=== PATIENT | male | born 1940 | race Caucasian/White ===

== ENCOUNTER → 2018-06-20 | Outpatient (CLI) | payer MEDICARE, OTHER ==
[~2018-06-20] MED LIST: ACET-1600 PO; ASPI-515 PO; ASPI325T17 PO; ATOR40TA PO; B COMPLEX; B COMPLEX SL; CALC625T64 PO; CELE50CA PO; CETI-158 PO; CETI10TA18 PO; CHOL200024 PO; CRAN1CAP8 PO; CYAN250013 PO; GABA-826 PO; GARLIC PO; GLUC1CAP18 PO; MAGN250T8 PO; METH1TAB PO; METH4TAB PO; MULT1TAB13 PO; MV-M1TAB35 PO; OMEG-14 PO; OXYC1TAB7 PO; PERSERVISION PO; PRAS25CA6 PO; PROBIOTIC 10 PO; RED600TA PO; TAMS-11 PO; VIT1CAPS42 PO; VITAMIN E PO; ZINC50CA PO; [UNRECOGNIZED DRUG - OTHER] PO; [UNRECOGNIZED DRUG - OTHER] PO; [UNRECOGNIZED DRUG - OTHER] PO; [UNRECOGNIZED DRUG - OTHER] PO
[2018-06-20 13:19] LABS: BASOPHILS # (AUTO) 0.02 x10^3/uL (0-0.1); BASOPHILS % (AUTO) 0 % (0-1); EOSINOPHILS # (AUTO) 0.13 x10^3/uL (0-0.4); EOSINOPHILS % (AUTO) 2 % (1-7); LYMPHOCYTES # (AUTO) 0.92 x10^3/uL (1-3.4); LYMPHOCYTES % (AUTO) 15 % (22-44); MD NO; MEAN CORPUSCULAR HEMOGLOBIN 29.4 pg (27.5-34.5); MEAN CORPUSCULAR HGB CONC 33.3 g/dL (33.2-36.2); MEAN CORPUSCULAR VOLUME 88.1 fL (81-97); MEAN PLATELET VOLUME 8.4 fL (7.4-10.4); MONOCYTES % (AUTO) 10 % (2-9); NEUTROPHILS # (AUTO) 4.61 x10^3/uL (1.8-6.8); NEUTROPHILS % (AUTO) 73 % (42-75); PLATELET COUNT 236 x10^3/uL (130-400); RED BLOOD COUNT 5.15 x10^6/uL (4.38-5.82); RED CELL DISTRIBUTION WIDTH 16.6 % (9.4-14.8)
[2018-06-20 13:28] LABS: INTERNATIONAL NORMALIZED RATIO 1.05 (0.93-1.1); PROTHROMBIN TIME 11.1 Seconds (9.6-11.5)
[2018-06-20 13:29] LABS: ALBUMIN 3.6 g/dL (3.4-5.0); ANION GAP 7 mmol/L (5-15); CALCIUM 9.1 mg/dL (8.5-10.1); CHLORIDE 106 mmol/L (98-107)
[2018-06-20 13:30] LABS: MICROSCOPIC AUTO
[2018-06-20 13:33] LABS: ALANINE AMINOTRANSFERASE 21 U/L (12-78); ALKALINE PHOSPHATASE 89 U/L (45-117); BILIRUBIN,TOTAL 0.4 mg/dL (0.2-1.0); CREATININE 1.01 mg/dL (0.7-1.3); TOTAL PROTEIN 7.4 g/dL (6.4-8.2)
== END | disposition home or self-care (01) ==
LOC: STAR 12:04
PROVIDERS: ATTEND Urology
DX: N40.0 Benign prostatic hyperplasia without lower urinary tract symptoms (principal)
CPT/HCPCS: 36415; 80053; 81001; 85025; 85610; 85730; 87077; 87086; 87186; 93005

== ENCOUNTER 2018-07-02 09:53 | Observation (INO) | payer MEDICARE, OTHER ==
[~2018-07-02] VITALS: Ht 182.9 cm; Wt 97.0 kg
[2018-07-02] MEDS ORDERED: LACTATED RINGERS 1,000 ML IV SCH (10:03)
[2018-07-02] MEDS ORDERED: FENTANYL PF 250 MCG/5ML ONE (12:28)
[2018-07-02] MEDS ORDERED: MIDAZOLAM 1 MG/ML, 2ML ONE (12:28)
[2018-07-02] MEDS ORDERED: SUCCINYLCHOLINE 20 MG/ML, 10ML ONE (13:06)
[2018-07-02] MEDS ORDERED: CEFAZOLIN 1,000 MG ONE (13:06)
[2018-07-02] MEDS ORDERED: PROPOFOL 10 MG/ML, 20ML ONE (13:06)
[2018-07-02] MEDS ORDERED: ROCURONIUM 10MG/ML,5ML ONE (13:06)
[2018-07-02] MEDS ORDERED: GENTAMICIN 80 MG/2 ML ONE (13:06)
[2018-07-02] MEDS ORDERED: LABETALOL 5MG/ML, 20ML IV PRN (13:30)
[2018-07-02] MEDS ORDERED: PROMETHAZINE 12.5 MG SUPP PR PRN (13:30)
[2018-07-02] MEDS ORDERED: OXYcodone 5 MG/5 ML ORAL.SOL UDC PO PRN (13:30)
[2018-07-02] MEDS ORDERED: hydrALAzine 20 MG/ML, 1ML IV PRN (13:30)
[2018-07-02] MEDS ORDERED: ONDANSETRON ODT 8 MG PO PRN (13:30)
[2018-07-02] MEDS ORDERED: ONDANSETRON 2MG/ML, 2ML IV PRN ×2 (13:30→16:30)
[2018-07-02] MEDS ORDERED: FENTANYL PF 100 MCG/2ML IV PRN (13:30)
[2018-07-02] MEDS ORDERED: HYDROmorphone 1 MG/ML, 1ML IV PRN (13:30)
[2018-07-02] MEDS ORDERED: HYDROcodone/APAP 5/325 TABLET PO PRN (16:30)
[2018-07-02] MEDS ORDERED: ACETAMINOPHEN 325 MG TABLET PO PRN (16:30)
[2018-07-02] MEDS ORDERED: OPIUM/BELLADONNA SUPP.RECT 16.2-30 MG PR PRN (16:30)
[2018-07-02] MEDS ORDERED: MORPHINE SULFATE 4 MG/ML, 1ML IVPush PRN (16:30)
[2018-07-02] MEDS: LACTATED RINGERS 1,000 ML IV SCH (18:18)
[2018-07-02 19:27] VITALS: BP 114/61
[2018-07-02] MEDS: CHOLECALCIFEROL 1,000 UNIT TABLET PO SCH (20:42)
[2018-07-02] MEDS ORDERED: ATORVASTATIN 40 MG TABLET PO SCH (21:00)
[2018-07-02 23:19] VITALS: BP 119/65
[2018-07-03] MEDS: LACTATED RINGERS 1,000 ML IV SCH ×2 (03:30→12:28)
[2018-07-03 03:59] VITALS: BP 110/61
[2018-07-03 07:23] VITALS: BP 117/60
[2018-07-03] MEDS: CHOLECALCIFEROL 1,000 UNIT TABLET PO SCH (08:00)
[2018-07-03] MEDS ORDERED: MAGNESIUM OXIDE 400 MG TABLET PO SCH (09:00)
[2018-07-03] MEDS ORDERED: LACTOBACILLUS CHEW TABLET PO SCH (09:00)
[2018-07-03] MEDS ORDERED: CALCIUM POLYCARBOPHIL 625 MG TABLET PO SCH (09:00)
[2018-07-03] MEDS ORDERED: ZINC SULFATE 220 MG CAPSULE PO SCH (09:00)
[2018-07-03] MEDS ORDERED: MULTIVITAMINS/MINERALS TABLET PO SCH (09:00)
[2018-07-03] MEDS ORDERED: CYANOCOBALAMIN 1,000 MCG TABLET PO SCH (09:00)
[2018-07-03] MEDS ORDERED: CETIRIZINE 10 MG TABLET PO SCH (09:00)
[2018-07-03 10:58] VITALS: BP 127/66
== END 2018-07-03 12:45 | disposition home or self-care (01) ==
LOC: OUT 09:53 → 4NOR 16:03 → OUT 16:11 → 4NOR 17:05 → DCLOUNGE 07-03 12:35
PROVIDERS: ADMIT Urology; ATTEND Urology
DX: N40.1 Benign prostatic hyperplasia with lower urinary tract symptoms (principal); R33.8 Other retention of urine; N32.89 Other specified disorders of bladder; N21.0 Calculus in bladder; Z96.659 Presence of unspecified artificial knee joint
CPT/HCPCS: 52601; 82360; 88300; 88305; G0378; J0330; J0690; J1580; J2250; J2704; J3010; J7120